=== PATIENT | female | born 1985 | race Caucasian/White ===

== ENCOUNTER → 2018-03-12 16:36 | Outpatient (CLI) | payer OTHER ==
[~2018-03-12 16:36] MED LIST: ALLEGRA ALLERG180 MG PO; ATARAX25 MG PO; MOTRIN800 MG PO; ORPH100T PO; SYNTHROID100 MCG PO; TRAM1TAB98 PO
== END | disposition home or self-care (01) ==
LOC: RAD 16:36
DX: M54.2 Cervicalgia (principal)

== ENCOUNTER 2018-10-23 09:10 | Outpatient (CLI) | payer OTHER | END 2018-10-23 09:13 | disposition home or self-care (01) | LOC: RAD 09:10 | DX: M54.89 Other dorsalgia (principal) ==